=== PATIENT | female | born 1985 | race Caucasian/White ===

== ENCOUNTER → 2020-02-23 | Outpatient (CLI) | payer OTHER ==
[2020-02-25 14:09] LABS: HPV 16 Negative (Negative); HPV 18 Negative (Negative); HPV OTHER HR TYPES Negative (Negative)
== END ==
LOC: LAB SHORT 14:00 → LAB 14:00
PROVIDERS: Obstetrics & Gynecology
DX: Z01.419 Encounter for gynecological examination (general) (routine) without abnormal findings (principal)
CPT/HCPCS: 87624; G0123

== ENCOUNTER → 2021-10-04 | Outpatient (CLI) | payer SELFPAY ==
[~2021-10-04] MED LIST: PRENATAL TABLE1 EAC2 PO
== END | disposition home or self-care (01) ==
LOC: LAB SHORT 13:33
DX: Z32.01 Encounter for pregnancy test, result positive (principal)
CPT/HCPCS: 84702

== ENCOUNTER → 2021-10-06 | Outpatient (CLI) | payer SELFPAY | END | disposition home or self-care (01) | LOC: LAB SHORT 14:38 | DX: Z32.01 Encounter for pregnancy test, result positive (principal) | CPT/HCPCS: 84702 ==

== ENCOUNTER → 2021-10-28 | Outpatient (CLI) | payer SELFPAY ==
[2021-10-28 13:32] LABS: Source, Urine Clean Catch
[2021-10-28 15:19] LABS: Bacteria Rare /hpf; Mucus Mod (0-Heavy); Red Blood Cells, Urine 0-2 /hpf (0-2); Squamous Epithelial Cells Few /hpf (Few); White Blood Cells, Urine 0-2 /hpf (0-5)
== END ==
LOC: LAB SHORT 13:30
PROVIDERS: Advanced Practice Midwife
DX: Z34.01 Encounter for supervision of normal first pregnancy, first trimester (principal)
CPT/HCPCS: 81015; 87086

== ENCOUNTER → 2022-05-12 | Outpatient (CLI) | payer OTHER | END | disposition home or self-care (01) | LOC: LAB SHORT 13:03 → LAB 13:03 | DX: O09.93 Supervision of high risk pregnancy, unspecified, third trimester (principal) | CPT/HCPCS: 87081; 87150 ==

== ENCOUNTER 2022-06-15 20:32 | Inpatient (IN) | payer OTHER ==
[~2022-06-15] VITALS: Ht 162.6 cm; Wt 66.6 kg
[2022-06-15] MEDS ORDERED: MAGNESIUM OXID500 MG PO (20:51)
[2022-06-15] MEDS ORDERED: THERA-D2000 UNIT PO (20:52)
[2022-06-15 21:01] LABS: BASOPHILS ABSOLUTE AUTO 0.02 K/mm3 (0.00-0.23); BASOPHILS PERCENT AUTO 0 % (0-2); EOSINOPHILS ABSOLUTE AUTO 0.03 K/mm3 (0.00-0.68); EOSINOPHILS PERCENT AUTO 0 % (0-6); Hematocrit 35.9 % (33.0-51.0); Hemoglobin 12.7 g/dL (11.5-16.0); IMMATURE GRAN ABSOLUTE AUTO 0.04 K/mm3 (0.00-0.10); IMMATURE GRAN PERCENT AUTO 0 % (0-1); LYMPHOCYTES ABSOLUTE AUTO 2.15 K/mm3 (0.84-5.20); LYMPHOCYTES PERCENT AUTO 17 % (21-46); MONOCYTES ABSOLUTE AUTO 0.66 K/mm3 (0.16-1.47); MONOCYTES PERCENT AUTO 5 % (4-13); Mean Corpuscular HGB 31.5 pg (26.0-34.0); Mean Corpuscular HGB Conc 35.4 g/dL (31.5-36.5); Mean Corpuscular Volume 89 fL (80-100); Mean Platelet Volume 11.7 fL (9.1-12.4); NEUTROPHILS ABSOLUTE AUTO 9.59 K/mm3 (1.96-9.15); NEUTROPHILS PERCENT AUTO 77 % (41-73); Platelet Count 213 K/mm3 (150-400); RDW Coefficient Variation 13.2 % (11.7-14.2); RDW Standard Deviation 43.1 fL (35.1-46.3); Red Blood Cell Count 4.03 M/mm3 (3.80-5.20); White Blood Cell Count 12.49 K/mm3 (4.00-11.30)
[2022-06-17] MEDS ORDERED: IBUP800 PO (12:47)
--- NOTE | 2022-06-17 17:00 | NUR ---
DISCHARGE INSTRUCTIONS, WRITTEN AND VERBAL, GIVEN TO PT AND . ANSWERED ALL QUESTIONS AND CONCERNS. IV DISCONTINUED. FOLLOW UP APPOINTMENT SCHEDULED. PRESCRIPTION CALLED INTO [facility]. ALL PERSONAL BELONGINGS RETURNED. PT IS DISCHARGED HOME.
== END 2022-06-17 17:55 | disposition home or self-care (01) | DRG 807 ==
LOC: OBS 20:32 → BC 20:35 → OBS 20:42 → BC 20:45
PROVIDERS: ADMIT Advanced Practice Midwife
PROC: 10E0XZZ Delivery of Products of Conception, External Approach (ICD-10-PCS; principal; 2022-06-16)
PROC: 0KQM0ZZ Repair Perineum Muscle, Open Approach (ICD-10-PCS; 2022-06-16)
DX: O42.02 Full-term premature rupture of membranes, onset of labor within 24 hours of rupture (principal); Z37.0 Single live birth; O99.814 Abnormal glucose complicating childbirth; O70.1 Second degree perineal laceration during delivery; O09.513 Supervision of elderly primigravida, third trimester; Z3A.40 40 weeks gestation of pregnancy; Z98.890 Other specified postprocedural states; Z90.49 Acquired absence of other specified parts of digestive tract; Z79.899 Other long term (current) drug therapy; Z86.19 Personal history of other infectious and parasitic diseases
CPT/HCPCS: 82947; 85025; 86850; 86900; 86901; A9270; J0690; J1885; J2210; J2590; J3010; J7120

== ENCOUNTER → 2023-05-04 | Outpatient (CLI) | payer OTHER ==
[~2023-05-04] MED LIST changes: +IBUP800 PO; +MAGNESIUM OXID500 MG PO; +THERA-D2000 UNIT PO
== END ==
LOC: LAB 09:45 → LAB SHORT 09:45
DX: Z32.01 Encounter for pregnancy test, result positive (principal)
CPT/HCPCS: 84702

== ENCOUNTER 2024-01-08 04:35 | Inpatient (IN) | payer OTHER ==
[2024-01-08] VITALS (10 sets, daily range): BP systolic 94–123; BP diastolic 50–78
[~2024-01-08] VITALS: Ht 162.6 cm; Wt 74.6 kg
[2024-01-08] MEDS ORDERED: Acetaminophen 500 MG Tab PO PRN (04:55)
[2024-01-08] MEDS ORDERED: FentaNYL Citrate 50 MCG/ML 2 ML Injection IV PRN ×2 (04:55→07:35)
[2024-01-08] MEDS ORDERED: Ondansetron HCl 2 MG / ML 2ML Vial IV PRN ×2 (04:55→07:35)
[2024-01-08] MEDS ORDERED: Calcium Carbonate 500 MG Tab Chew PO PRN (04:55)
[2024-01-08] MEDS ORDERED: Oxytocin 10 Unit / ML Vial IM SCH (05:00)
[2024-01-08] MEDS ORDERED: Lactated Ringer's 1,000 ML IV SCH ×3 (05:00→21:20)
[2024-01-08] MEDS ORDERED: Misoprostol 200 MCG Tab PR SCH (05:00)
[2024-01-08] MEDS ORDERED: Lidocaine HCl 1% 30 ML SDV XX SCH (05:00)
[2024-01-08] MEDS ORDERED: Methylergonovine Maleate 0.2MG / ML 1ML Amp IM SCH (05:00)
[2024-01-08] MEDS ORDERED: Lactated Ringer's 1,000 ML IV PRN (05:00)
[2024-01-08] MEDS ORDERED: Castor Oil 59.146 ML BTL TOP SCH (05:00)
[2024-01-08] MEDS ORDERED: LR Oxytocin 20 Units 1,000 ML IV SCH ×2 (05:00→21:20)
[2024-01-08] MEDS ORDERED: Bupivacaine 0.5% HCl 5 MG/ML 30MLVIAL XX SCH (05:00)
[2024-01-08] MEDS ORDERED: Bupivacaine HCl 2.5 MG/ML 10ML P/F Injection XX SCH (05:00)
[2024-01-08] MEDS ORDERED: FentaNYL 2mcg/ml-Bup 0.1% Epd 250 ML EPI PRN (05:00)
[2024-01-08] MEDS ORDERED: ePHEDrine Sulfate 50 MG/ML 1ML Injection XX PRN (05:00)
[2024-01-08 05:29] LABS: BASOPHILS ABSOLUTE AUTO 0.03 K/mm3 (0.00-0.23); BASOPHILS PERCENT AUTO 0 % (0-2); EOSINOPHILS ABSOLUTE AUTO 0.06 K/mm3 (0.00-0.68); EOSINOPHILS PERCENT AUTO 1 % (0-6); Hematocrit 35.8 % (33.0-51.0); Hemoglobin 12.7 g/dL (11.5-16.0); IMMATURE GRAN ABSOLUTE AUTO 0.05 K/mm3 (0.00-0.10); IMMATURE GRAN PERCENT AUTO 0 % (0-1); LYMPHOCYTES ABSOLUTE AUTO 2.33 K/mm3 (0.84-5.20); LYMPHOCYTES PERCENT AUTO 20 % (21-46); MONOCYTES ABSOLUTE AUTO 0.56 K/mm3 (0.16-1.47); MONOCYTES PERCENT AUTO 5 % (4-13); Mean Corpuscular HGB 31.3 pg (26.0-34.0); Mean Corpuscular HGB Conc 35.5 g/dL (31.5-36.5); Mean Corpuscular Volume 88 fL (80-100); Mean Platelet Volume 10.9 fL (9.1-12.4); NEUTROPHILS ABSOLUTE AUTO 8.75 K/mm3 (1.96-9.15); NEUTROPHILS PERCENT AUTO 74 % (41-73); Platelet Count 263 K/mm3 (150-400); RDW Coefficient Variation 12.8 % (11.7-14.2); RDW Standard Deviation 41.2 fL (35.1-46.3); Red Blood Cell Count 4.06 M/mm3 (3.80-5.20); White Blood Cell Count 11.78 K/mm3 (4.00-11.30)
[2024-01-08] MEDS ORDERED: ACYC400 PO (06:57)
[2024-01-08] MEDS ORDERED: Acetaminophen 325 MG TABLET PO PRN ×2 (07:35→21:15)
[2024-01-08] MEDS ORDERED: Docusate Sodium 100 MG Cap PO PRN (21:15)
[2024-01-08] MEDS ORDERED: Methylergonovine Maleate 0.2MG / ML 1ML Amp IM PRN (21:15)
[2024-01-08] MEDS ORDERED: Benzocaine Topical Anesthetic Spray 60GM TOP PRN (21:15)
[2024-01-08] MEDS ORDERED: Witch Hazel/Glycerin PADS TOP PRN (21:15)
[2024-01-08] MEDS ORDERED: Misoprostol 200 MCG Tab PR PRN (21:20)
[2024-01-08] MEDS ORDERED: Ibuprofen 400 MG Tab PO PRN (21:20)
[2024-01-08] MEDS ORDERED: Ketorolac Tromethamine 30mg Vial IV PRN (22:00)
[2024-01-08] MEDS ORDERED: Ketorolac Tromethamine 30mg Vial IV ONE (22:00)
[2024-01-09 06:18] LABS: Hematocrit 29.8 % (33.0-51.0); Hemoglobin 10.6 g/dL (11.5-16.0); Mean Corpuscular HGB 31.5 pg (26.0-34.0); Mean Corpuscular HGB Conc 35.6 g/dL (31.5-36.5); Mean Corpuscular Volume 89 fL (80-100); Mean Platelet Volume 10.7 fL (9.1-12.4); Platelet Count 247 K/mm3 (150-400); RDW Coefficient Variation 12.8 % (11.7-14.2); RDW Standard Deviation 41.6 fL (35.1-46.3); Red Blood Cell Count 3.36 M/mm3 (3.80-5.20); White Blood Cell Count 17.89 K/mm3 (4.00-11.30)
[2024-01-09 07:17] VITALS: BP 118/64
[2024-01-09] MEDS ORDERED: Prenatal Vit/FE Fumarate/FA 1 Tab PO SCH (09:00)
[2024-01-09 11:36] VITALS: BP 130/68
[2024-01-09 15:40] VITALS: BP 104/60
[2024-01-09 20:25] VITALS: BP 120/65
--- NOTE | 2024-01-09 22:14 | NUR ---
DISCHARGE NOTE; PT TO D/C AT THIS TIME. PT GIVEN DISCHARGE INSTRUCTIONS AND ENCOURAGED TO ASK ANY FURTHER QUESTIONS. PT DENIES ANY FURTHER QUESTIONS. PT IS VOIDING, BLEEDING IS WNL. PT PROVIDED [facility] APPT CARD FOR Sunday01/11/24.
== END 2024-01-09 22:10 | disposition home or self-care (01) | DRG 806 ==
LOC: OBS 04:35 → BC 04:38 → OBS 04:44 → BC 04:46
PROVIDERS: ADMIT Advanced Practice Midwife
PROC: 10E0XZZ Delivery of Products of Conception, External Approach (ICD-10-PCS; principal; 2024-01-08)
DX: O48.0 Post-term pregnancy (principal); O44.03 Complete placenta previa NOS or without hemorrhage, third trimester; Z37.0 Single live birth; O42.02 Full-term premature rupture of membranes, onset of labor within 24 hours of rupture; O24.420 Gestational diabetes mellitus in childbirth, diet controlled; Z90.49 Acquired absence of other specified parts of digestive tract; Z98.890 Other specified postprocedural states; Z79.899 Other long term (current) drug therapy; Z3A.40 40 weeks gestation of pregnancy; O70.0 First degree perineal laceration during delivery
CPT/HCPCS: 36415; 85025; 85027; 86850; 86900; 86901; A9270; J1885; J2590; J3010; J7120